=== PATIENT | female | born 1955 | race Caucasian/White ===

== ENCOUNTER 2016-04-27 09:18 | Emergency (ER) | payer OTHER ==
[~2016-04-27] VITALS: Ht 157.5 cm; Wt 69.4 kg
[~2016-04-27 09:18] MED LIST: CYCLOBENZAPRINE10 M1 PO; LISINOPRIL2.5 M1 PO; LISINOPRIL40 M1 PO; MARIJUANA; METFORMIN HCL500 M3 PO; NUCYNTA50 M1 PO; PERCOCET 5-3251 EACH PO; PREDNISONE20 M1 PO; TYLENOL #31 TAB PO
[2016-04-27 09:23] VITALS: BP 160/79
[2016-04-27] MEDS ORDERED: ROBAXIN-750750 M1 PO (09:43)
--- NOTE | 2016-04-27 09:43 | ED NECK/BACK PAIN COMPLAINT ---
History of Present Illness General Chief Complaint: Fall Stated Complaint: FALL ON ICE/LBP Source: patient Exam Limitations: no limitations Vital Signs & Intake/Output Vital Signs & Intake/Output Vital Signs Date Time Temp Pulse Resp B/P Pulse O2 O2 Flow FiO2 Ox Delivery Rate 04/27 0923 98.5 86 16 160/79 97 Room Air Allergies Coded Allergies: Sulfa (Sulfonamide Antibiotics) (Severe, ANAPHYLAXIS 03/05/16) aspirin (Intermediate, GI DISTRESS 03/05/16) tramadol (Intermediate, NAUSEA 03/05/16) Reconcile Medications Lisinopril 40 MG TABLET 1 TAB PO DAILY HEART (Reported) [MARIJUANA] PAIN (Reported) Methocarbamol (Robaxin-750) 750 MG TABLET 1 TAB PO TID PRN spasm Tapentadol HCl (Nucynta) 50 MG TABLET 1 TAB PO DAILY PAIN (Reported) Triage Note: PT STATES SHE FELL ON THE ICE, DENIES HITTING HER HEAD STATES SHE FELL HITTING HER COCCYX AREA AND HER LEFT ELBOW. PT STATES HER ELBOW SEEMS FINE JUST A LITTLE RED. PT STATES THIS HAPPEND ABOUT 0730 THIS AM. PT DENIES LOC Triage Nurses Notes Reviewed? yes HPI: 60-year-old female here with complaints of left posterior lower pelvic pain after a slip on ice that occurred at 7:30 this morning. She was walking, slipped on ice fell onto her buttocks region and had immediate moderate pain. She has been able to get up and walk since, she has most difficulty trying to get out of the car. She is able to walk without difficulty and she is sitting without difficulty. There is been no treatment thus far. Her symptoms are mild and worse with palpation of the area. No previous back or hip pain or injury. (ROSIE CARRILLO) Past History Travel History Traveled to [place] past 21 day No Medical History Any Pertinent Medical History? see below for history Cardiovascular: hypertension, syncope Endocrine: mild diabetes per patient Surgical History Surgical History: spinal fusion Psychosocial History What is your primary language Korean Tobacco Use: Never used ETOH Use: occasional use Illicit Drug Use: marijuana Family History Hx Contributory? No (ROSIE CARRILLO) Review of Systems Review of Systems Constitutional: Reports: see HPI. Eyes: Reports: no symptoms. Ears, Nose, Throat, Mouth: Reports: no symptoms. Respiratory: Reports: no symptoms. Cardiovascular: Reports: no symptoms. Gastrointestinal/Abdominal: Reports: no symptoms. Musculoskeletal: Reports: see HPI. Skin: Reports: no symptoms. Neurological/Psychological: Reports: no symptoms. All Other Systems: Reviewed and Negative (ROSIE CARRILLO) Physical Exam Physical Exam Neck: normal inspection, supple, full range of motion, normal alignment Comments: Well-developed well-nourished no apparent distress. HEENT: Atraumatic, extraocular motion intact Neck: Supple, no lymphadenopathy Back: Nontender Respiratory: No respiratory distress Extremities: No edema, full range of motion Neuro: Alert and oriented x3 Psych: Mood affect normal, normal memory normal judgment. Skin: Warm and dry, no rash on exposed skin Posterior pelvic region to the left side of the sacral coccyx region there is mild point tenderness. There is no swelling there is no ecchymosis. There is no coccyx tenderness, no crepitus, no signs of injury. Bilateral hips are nontender, full range of motion, sitting without difficulty standing and walking without difficulty. (ROSIE CARRILLO) Progress Differential Diagnosis: AAA, aortic dissection, C spine injury, carotid dissection, cauda equina syn, herniated disc, myofascial strain, pyelo/UTI, sciatica, spinal cord inj, thoracic outlet syn, T/L spine injury, ureterolithiasis Plan of Care: I do not feel the patient requires an x-ray as it is highly unlikely that there is any fracture given her physical exam findings. This was discussed with her. She'll follow-up with her doctor in 1 week's time if symptoms continue (ROSIE CARRILLO) Departure Departure Disposition: HOME OR SELF CARE Condition: Stable Clinical Impression Primary Impression: Pelvic contusion Qualifiers: Encounter type: initial encounter Qualified Code: S30.0XXA - Contusion of lower back and pelvis, initial encounter Referrals: WILLIAM RIOS,RENA (PCP/Family) Additional Instructions: Take medications for pain, spasm and inflammation as needed. Rest, warm compresses, gentle stretching. Follow-up with your doctor if no better in the next 5-7 days. Watch for worsening symptoms of pain, numbness or weakness down the leg, return with any concerns. Departure Forms: Customer Survey General Discharge Information Prescriptions: Current Visit Scripts Methocarbamol (Robaxin-750) 1 TAB PO TID PRN spasm #15 TAB (ROSIE CARRILLO) PA/PHOTO RETOUCHER Co-Sign Statement Statement: ED Attending supervision documentation- x I saw and evaluated the patient. I have also reviewed all the pertinent lab results and diagnostic results. I agree with the findings and the plan of care as documented in the PA's/PHOTO RETOUCHER's documentation. [] I have reviewed the ED Record and agree with the PA's/PHOTO RETOUCHER's documentation. [] Additions or exceptions (if any) to the PAs/PHOTO RETOUCHER's note and plan are summarized below: [] (ARTUR RIOS,BELLA)
== END 2016-04-27 09:54 ==
LOC: ERH 09:18
DX: S30.0XXA Contusion of lower back and pelvis, initial encounter (principal); W00.0XXA Fall on same level due to ice and snow, initial encounter

== ENCOUNTER → 2017-06-23 | Day surgery (SDC) | payer OTHER ==
--- NOTE | 2017-06-20 13:45 | History & Physical Pre-Op ---
General Information and HPI History of Present Illness: Mague is a 61-year-old female with a long-standing and worsening complaint of painful hammertoes involving the second third fourth and fifth digits left foot. The patient also complains of painful neuromas involving the second interspace left and right feet. The patient has undergone an extended course of conservative care, including shoe gear and activity modification, rest, immobilization course of NSAIDs. None of this is yielded her any significant relief. The patient presents today for preoperative surgical consultation. The patient was referred to our office from Ed Gibbons DPM. Allergies/Medications Allergies: Coded Allergies: Sulfa (Sulfonamide Antibiotics) (Severe, ANAPHYLAXIS 06/19/17) aspirin (Intermediate, GI DISTRESS 06/19/17) tramadol (Intermediate, NAUSEA 06/19/17) Home Med list Lisinopril 40 MG TABLET 1 TAB PO DAILY HEART (Reported) [MARIJUANA] PAIN (Reported) Methocarbamol (Robaxin-750) 750 MG TABLET 1 TAB PO TID PRN spasm Tapentadol HCl (Nucynta) 50 MG TABLET 1 TAB PO DAILY PAIN (Reported) Past History Medical History Cardiovascular: hypertension, syncope Endocrine: mild diabetes per patient Surgical History Pertinent Surgical History: spinal fusion Review of Systems Review of Systems: Unremarkable except for that noted in history of present illness Exam & Diagnostic Data Physical Exam: Lungs clear bilaterally. Heart sounds rate and rhythm regular. Lower extremity physical exam demonstrates intact pedal pulses bilaterally. Pulses dorsalis pedis and posterior tibial arteries are palpable bilaterally. Patient without any sensory motor deficits. Deep tendon reflexes grossly intact. Patient noted to have significant pain involving the lesser digits of the left foot at the level of the proximal interphalangeal joints. There is pain with palpation range of motion. Patient also noted to have pain with palpation to the second interspace bilaterally. Positive Jessica sign identified bilaterally. Assessment/Plan Assessment/Plan: Painful hammertoes left foot and painful neuromas left and right feet. A lengthy discussion reviewing both surgical and conservative options was held with the patient at bedside and the patient elected to go forward with surgical intervention. As Ranked By This Provider Problem List: 1. Other hammer toe(s) (acquired), left foot Attending MD Review Statement Attending Statement Attending MD Statement: examined this patient
[~2017-06-23] VITALS: Ht 157.5 cm; Wt 65.8 kg
[~2017-06-23] MED LIST changes: +ROBAXIN-750750 M1 PO
--- NOTE | 2017-06-23 08:59 | Operative Report ---
Operative/Inv Procedure Report Surgery Date: 06/23/17 Name of Procedure: 1 arthroplasty second toe left 2 arthroplasty third toe left foot 3 arthroplasty fourth toe left foot 4 arthroplasty fifth toe left foot 5 excision of neuroma second interspace left foot 6 excision of neuroma second interspace right foot Pre-Operative Diagnosis: 1 hammertoe second toe left foot 2 hammertoe third toe left foot 3 hammertoe fourth toe left foot 4 hammertoe fifth toe left foot 5 painful neuroma second interspace left foot 6 painful neuroma second interspace right foot Post-Operative Diagnosis: The same Estimated Blood Loss: scant Surgeon/Intelligence Specialist: Jose TAYLOR,Jorge Gibbons DPM Anesthesia: moderate sedation, block Operative/Procedure Note Note: After obtaining informed consent the patient was brought to the operating room and placed on the operating table in the supine position. The patient isn't securely fastened to the operating table utilizing safety belt. After administration of IV sedation, 10 mL of 0.5% Marcaine plain was obtained about the patient's left and right ankles. 2 well-padded ankle tourniquets were placed about the patient's left and right lower extremities. 2 g of Ancef were delivered intravenously times one dose. The left and right feet were then scrubbed, prepped and draped in usual aseptic manner. The left lower extremity was elevated to examine to limb, at which point the ankle tourniquet was inflated 250 mmHg. Attention directed dorsal aspect of the proximal interphalangeal joints of the second third fourth and fifth digits. Transversely oriented semielliptical incisions centered over the proximal interphalangeal joints were incised with 15 blade. The ellipses of skin were freed and passed from the operative field. Transverse tenotomies were then performed exposing the heads of the second third fourth and fifth proximal phalanges. These were then removed a sagittal bone saw. The extensor tendons reports a 4-0 Vicryl. Skin edges reprepped with 4-0 nylon. Attention was then directed to the second interspace where a 4 cm incision was made overlying the distal interspace. It was then carried down to the digital branches of the neuroma which were freed. The body of the neuroma was identified and distracted distally and cut proximally. From the operative field and sent a specimen for pathologic inspection. The deep tissues reports a 4-0 Vicryl and the skin edges reprepped with 4-0 nylon. Incision dressed with Xeroform 4 x 4's Kerlix and Pedro wrap. The tourniquet was then deflated. Next, the right lower extremity is elevated to examine to limb, which point the ankle tourniquet inflated 250 mmHg. Attention directed distal second interspace where a 4 cm linear incision was carried down to subtenons tissues. The digital branches of the neuroma were identified and freed. The body and the neuroma was distracted distally and cut proximally. The specimen operative field as specimen. The deep tissues reports a 4-0 Vicryl and the skin is reprepped for nylon. Incision just with Xeroform 4 x 4's Kerlix and Pedro wrap. The patient was noted tolerate both procedure and anesthesia well and the patient was transported from the operating room to recovery by sent stable best assess intact all digits bilateral feet. Please cc a copy of this dictation to Ed Gibbons DPM.
== END ==
LOC: STS 03:15
DX: M20.42 Other hammer toe(s) (acquired), left foot (principal); G57.63 Lesion of plantar nerve, bilateral lower limbs; I10 Essential (primary) hypertension; M48.02 Spinal stenosis, cervical region
CPT/HCPCS: 88304; 88305; J0131; J0690; J1100; J2001; J2250